=== PATIENT | female | born 1985 | race American Indian/Alaskan Native ===

== ENCOUNTER 2024-02-22 14:50 | Emergency (ER) | payer OTHER, MEDICAID, SELFPAY ==
[2024-02-22 15:28] VITALS: BP 120/86; PULSE 86; RESP 18; TEMP 37; O2SAT 98; BMI 30.9
--- NOTE | 2024-02-22 15:41 | PD.EDALLER ---
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 Patient reports does not have EpiPen or has used it in the past. Mode of arrival: ambulatory Limitations: no limitations Related Data Home Medications ?Medication ?Instructions ?Recorded ?Confirmed Levothyroxine * (SYNTHROID *) 25 mcg PO QDAY #0 tabs 07/09/15 Vitamin * 1 tab PO QDAY #0 tabs 07/09/15 Previous Rx's ?Medication ?Instructions ?Recorded omeprazole 20 mg capsule,delayed 20 mg PO QDAY #30 caps 11/14/20 release diphenhydramine HCl 25 mg capsule 25 mg PO TID PRN itching 7 days 02/22/24 (Benadryl) #10 caps prednisone 20 mg tablet 20 mg PO BID 3 days #6 tabs 02/22/24 Allergies Allergy/AdvReac Type Severity Reaction Status Date / Time bee venom protein (honey bee) AdvReac Intermediate Anaphylaxis Verified 02/22/24 14:53 Review of Systems Review of Systems Systems Reviewed: All systems reviewed, normal except as documented Constitutional Constitutional: Reports system reviewed and no additional complaints, except as documented, Denies body ache(s), Denies chills and Denies fever(s) Eyes Eyes: Reports system reviewed and no additional complaints, except as documented and Denies change in vision ENT Ears, Nose, Mouth, and Throat: Reports system reviewed and no additional complaints, except as documented, Denies disequilibrium, Denies dizziness, Denies sore throat and Denies vertigo Cardiovascular Cardiovascular: Reports system reviewed and no additional complaints, except as documented, Denies chest pain and Denies dyspnea Respiratory Respiratory: Reports system reviewed and no additional complaints, except as documented, Denies chest congestion, Denies cough and Denies dyspnea Gastrointestinal Gastrointestinal: Reports system reviewed and no additional complaints, except as documented, Denies abdominal pain, Denies nausea and Denies vomiting Musculoskeletal Musculoskeletal: Reports system reviewed and no additional complaints, except as documented, Denies abnormal gait, Denies arthralgias and Reports joint swelling Integumentary/Breasts Skin/Breast: Reports system reviewed and no additional complaints, except as documented, Denies erythema, Denies rash and Denies wounds Neurologic Neurologic: Reports system reviewed and no additional complaints, except as documented, Denies abnormal gait, Denies disequilibrium, Denies dizziness and Denies vertigo Past Medical History Past Medical History CARDIAC: Negative Cardiac Disorders or Congestive Heart Failure RESPIRATORY: Negative Chronic Obstructive Pulmonary Disease (COPD) or Asthma GASTROINTESTINAL: Positive Gastrointestinal Disorders GENITOURINARY: Negative Renal Disease ENDOCRINE: Negative Diabetes Mellitus Type 1 or Diabetes Mellitus Type 2 HEMATOLOGIC: Negative Sickle Cell Disease Social History SMOKING STATUS: Never smoker SUBSTANCE USE: marijuana ED Exam General Limitations: Present no limitations General appearance: Present alert and in no apparent distress Head Head exam: Present atraumatic Eye Eye exam: Present normal appearance, PERRL and EOMI ENT ENT exam: Present normal exam, normal oropharynx and mucous membranes moist Neck Neck exam: Present normal inspection, full ROM and trachea midline Chest Chest inspection: Present normal inspection and symmetric chest wall rise Respiratory Respiratory exam: Present normal lung sounds bilaterally Cardiovascular Cardiovascular exam: Present regular rate, normal rhythm and normal heart sounds Abdominal Exam Abdominal exam: Present soft and normal bowel sounds Extremities Exam Extremities exam: Present normal inspection and full ROM Expanded Upper Extremity Exam Hand L/R back image: 1. Edema +1 and redness Back Exam Back exam: Present normal inspection and full ROM Neurological Exam Neurological exam: Present alert, oriented X3 and CN II-XII intact Psychiatric Psychiatric exam: Present normal affect and normal mood Skin Skin exam: Present warm, dry, intact and normal color Course Quality Measures none Orders Category Date Time Status Dexamethasone Inj [Decadron Inj] Med 02/22/24 15:40 Discontinued 10 mg IM X1 ONE DiphenhydrAMINE [Benadryl] Med 02/22/24 15:40 Discontinued 50 mg PO X1 ONE Famotidine [Pepcid] Med 02/22/24 15:40 Discontinued 40 mg PO X1 ONE Vital Signs Vital signs: Vital Signs Temperature 98.6 F 02/22/24 15:28 Pulse Rate 86 02/22/24 15:28 Respiratory Rate 18 02/22/24 15:28 Blood Pressure 120/86 H 02/22/24 15:28 Pulse Oximetry (%) 98 02/22/24 15:28 Oxygen Delivery Method Room Air 02/22/24 15:28 98% room air within normal limits Allergic Reaction MDM Narrative MDM Narrative:: 38-year-old female with 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 Patient reports does not have EpiPen or has used it in the past. On exam erythema and swelling localized to right index finger. Patient denies any shortness of breath, chest pain, or rash anywhere else. Patient given antihistamines and steroids with significant improvement. Patient appears nontoxic and hemodynamically stable. Patient discharged home and instructed to follow-up with primary care provider upon discharge and return to the emergency department for any worsening symptoms or as needed. Patient data External records reviewed:: [facility] previous records Clinical information provided by:: patient Social determinants that could affect healthcare access:: none Patient has the following chronic illnesses:: See chart How is presenting disease/condition affected by chronic disease/condition?: uneffected by Evaluation data The following diagnostics were reviewed and interpreted by me:: other (specify) (N/A) Lab and/or radiology exams considered but not ordered:: N/A Interpretation Summary: N/A Medications / Prescriptions Medications or Prescriptions considered but not ordered:: Ordered Medication administrations:: Medication Administration History Discontinued Medications Dexamethasone Sodium Phosphate (Dexamethasone Sod Phos Inj 10 Mg/Ml Vial) 10 mg IM X1 ONE Stop: 02/22/24 15:41 Last Admin: 02/22/24 16:24 Dose: 10 mg Documented By: MARITZA Diphenhydramine HCl (Diphenhydramine Elix 25 Mg/10 Ml Udc) 50 mg PO X1 ONE Stop: 02/22/24 15:41 Last Admin: 02/22/24 16:23 Dose: 50 mg Documented By: MARITZA Famotidine (Famotidine 20 Mg Tablet) 40 mg PO X1 ONE Stop: 02/22/24 15:41 Last Admin: 02/22/24 16:23 Dose: 40 mg Documented By: MARITZA Given Consultations Consultation(s) initiated? (list below): No Diagnosis Differential Diagnosis allergic reaction: allergic reaction Most likely diagnosis given after review of the tests above:: Bee sting Allergic reaction Admission Indicated Admission indicated?: not indicated Admission Request Was there a request for admission?: No Disposition Plan Disposition Plan: Discharge Discharge Attestation Discharge Attestation: The patient and all family members were given an opportunity to ask questions and understood the discharge instructions. Discharge instructions specifically effects, indications for sooner follow up or return to the emergency department, and the expected course of current diagnosis. Patient condition: Stable Discharge Plan Plan Patient Disposition: HOME (Self Care) Disposition Comment: Stable Prescriptions/Referrals Prescriptions/Med Rec: New prednisone 20 mg tablet 20 mg PO BID 3 Days Qty: 6 0RF Taper: Prednisone Taper 20 mg DAILY for 2 Days and 0 Hour 10 mg DAILY for 2 Days and 0 Hour 5 mg DAILY for 7 Days and 0 Hour diphenhydramine HCl [Benadryl] 25 mg capsule 25 mg PO TID PRN (Reason: itching) 7 Days Qty: 10 0RF No Action Vitamin * 1 EACH tablet 1 tab PO QDAY Qty: 0 Levothyroxine * (SYNTHROID *) 25 MCG tablet 25 mcg PO QDAY Qty: 0 omeprazole 20 mg capsule,delayed release(DR/EC) 20 mg PO QDAY Qty: 30 0RF Referrals: Darrel(Jose)Alia PA-C [Primary Care Provider] - In 1 week Problem List Clinical Impression: Bee sting allergy, Allergic reaction Patient/Caregiver Discharge Instructions Discharge Activity: activity as tolerated Education Materials: ED Bite Sting Insect Gen Allergic React Additional Instructions: Take medication as prescribed. Follow-up with primary care provider upon discharge. Return to emergency department for any worsening symptoms or as needed. Print Language: Palestinian Stand Alone Forms: Nichelle Award Info., Patient Portal Info Letter Attestation Attestation The patient was seen by the midlevel practitioner. I, the co-signing physician, was present during the entire ER visit. While I did not physically examine the patient, I was available for consultation as needed.
[2024-02-22] MEDS: DiphenhydrAMINE ELIX 25 MG/10 ML UDC 50 MG PO (16:23)
[2024-02-22] MEDS: FAMOTIDINE 20 MG TABLET 40 MG PO (16:23)
[2024-02-22] MEDS: DEXAMETHASONE SOD PHOS INJ 10 MG/ML VIAL IM (16:24)
== END 2024-02-22 17:30 | disposition home or self-care (01) ==
PROVIDERS: Emergency Provider Emergency Medicine; PCP Nurse Practitioner Family
DX: T63.441A Toxic effect of venom of bees, accidental (unintentional), initial encounter (principal); M79.89 Other specified soft tissue disorders
CPT/HCPCS: 96372; 99283; J1100; A9270